=== PATIENT | male | born 1995 | race American Indian/Alaskan Native ===

== ENCOUNTER 2023-07-18 08:55 | Day surgery (SDC) | payer BC, OTHER ==
[2023-07-18] VITALS (12 sets, daily range): BP systolic 110–171; BP diastolic 50–120; PULSE 76–116; RESP 10–22; TEMP 98.4; O2SAT 94–97
[~2023-07-18] VITALS: Ht 180.3 cm; Wt 124.4 kg
[~2023-07-18 08:55] MED LIST: NO HOME MEDS
[2023-07-18] MEDS: ringers solution, lacted 1,000 ML IV SCH (10:00)
[2023-07-18] MEDS: clindamycin-Cleocin 900mg/D5W 50 ML IV ONE (10:00)
[2023-07-18] MEDS: famotidine 20mg tablet PO ONE (10:00)
[2023-07-18 10:11] LABS: BASOPHILS # (AUTO) 0.1 X10'3 (0-0.2); BASOPHILS % (AUTO) 0.7 % (0-1); EOSINOPHILS # (AUTO) 0.2 X10'3 (0-0.9); EOSINOPHILS % (AUTO) 1.8 % (0-6); LYMPHOCYTES # (AUTO) 2.9 X10'3 (1.1-4.8); LYMPHOCYTES % (AUTO) 30.9 % (21-51); MEAN CORPUSCULAR HEMOGLOBIN 29.4 PG (27.0-31.0); MEAN CORPUSCULAR HGB CONC 34.6 g/dL (33.0-36.5); MEAN CORPUSCULAR VOLUME 84.9 FL (78-98); MEAN PLATELET VOLUME 7.8 FL (7.4-10.4); MONOCYTES # (AUTO) 0.7 X10'3 (0-0.9); MONOCYTES % (AUTO) 7.5 % (2-12); NEUTROPHILS # (AUTO) 5.6 X10'3 (1.8-7.7); NEUTROPHILS % (AUTO) 59.1 % (42-75); PRE OP HEMATOCRIT 46.1 % (42.0-52.0); PRE OP PLATELET COUNT 315 X10'3 (140-440); PRE OP WHITE BLOOD COUNT 9.4 10'3 (4.8-10.8); RED BLOOD COUNT 5.43 X10'6 (4.70-6.10); RED CELL DISTRIBUTION WIDTH 13.3 % (11.5-14.5)
[2023-07-18 10:26] LABS: ALBUMIN 3.8 G/DL (3.4-5.0); ALBUMIN/GLOBULIN RATIO 0.9 (1.1-1.5); ALKALINE PHOSPHATASE 74 IU/L (46-116); BLOOD UREA NITROGEN 11 MG/DL (7-18); BUN/CREATININE RATIO 10.2 (10.0-20.0); CHLORIDE 102 MMOL/L (99-107); CREATININE 1.08 MG/DL (0.60-1.10); PRE OP ALT 40 U/L (30-65); PRE OP ANION GAP 9 (8-16); PRE OP AST 20 U/L (10-37); PRE OP BILIRUB, TOTAL 1.4 MG/DL (0.0-1.0); PRE OP GLUCOSE 101 MG/DL (70-104); PRE OP SODIUM 137 MMOL/L (135-145); TOTAL CARBON DIOXIDE 25.6 MMOL/L (24-32); eCRCL 107 ML/MIN; eGFR 80 ML/MIN
[2023-07-18 10:31] LABS: PRE OP POTASSIUM 3.8 MMOL/L (3.4-5.1)
[2023-07-18] MEDS ORDERED: labetalol 20mg/4ml (5mg/ml) syringe IV PRN (10:45)
[2023-07-18] MEDS ORDERED: morphine 2 MG/ML inj. syringe IV PRN (10:45)
[2023-07-18] MEDS ORDERED: proCHLORperazine 10 MG/2 ml inj IV PRN (10:45)
[2023-07-18] MEDS ORDERED: ondansetron/PF 4mg/2ml inj IV PRN (10:45)
[2023-07-18] MEDS ORDERED: meperidine/PF 25mg/ml syringe IV PRN ×3 (10:45)
[2023-07-18] MEDS ORDERED: acetaminophen 1,000mg/100ml IV 100 ML IV ONE (10:45)
[2023-07-18] MEDS ORDERED: ringers solution, lacted 1,000 ML IV SCH (10:45)
[2023-07-18] MEDS ORDERED: hydrALAZINE 20mg/ml inj. IV PRN (10:45)
[2023-07-18] MEDS ORDERED: morphine 4 MG/ML inj SYRINge IV PRN (10:45)
[2023-07-18] MEDS ORDERED: sevoflurane 250ml liquid IH ONE (10:47)
[2023-07-18] MEDS ORDERED: fentaNYL /PF 50mcg/ml 5ml ampule ONE (10:52)
[2023-07-18] MEDS ORDERED: midazolam 1 mg/ML 2ml injection ONE (10:52)
[2023-07-18] MEDS ORDERED: LIDOcaine 2% (20mg/ml) 5ml vial ONE (11:09)
[2023-07-18] MEDS ORDERED: propofol inj 20 ML IV ONE ×2 (11:09)
[2023-07-18] MEDS ORDERED: dexamethasone sod phosphate 4mg/ml inj. ONE (11:10)
[2023-07-18] MEDS ORDERED: ondansetron/PF 4mg/2ml inj ONE (11:10)
[2023-07-18] MEDS ORDERED: rocuronium 10mg/ml inj IV ONE (11:10)
[2023-07-18] MEDS: LIDOcaine 1% 30ml preserv. free vial ONE (12:04)
[2023-07-18] MEDS: BUPIVAcaine 2.5mg/ml inj 50ml vial (contains preservative) ONE (12:04)
[2023-07-18] MEDS: BUPIVACAINE liposomal/PF 13.3 MG/ML vial IM ONE (12:04)
[2023-07-18] MEDS: BUPIVAcaine/PF 2.5mg/ml (0.25%) 10ml vial ONE (12:04)
[2023-07-18] MEDS ORDERED: neostigmine methylsulfate 1 MG/ML 10ml vial ONE (12:13)
[2023-07-18] MEDS ORDERED: glycopyrrolate 0.2mg/ml inj ONE (12:13)
[2023-07-18] MEDS: oxyCODONE/APAP 5-325mg tablet PO PRN (13:20)
[2023-07-18] MEDS: ketorolac trometh. 30mg/ml inj. IV ONE (13:29)
== END 2023-07-18 14:04 | disposition home or self-care (01) ==
LOC: PAS 08:55
PROVIDERS: ATTEND Surgery
DX: K43.2 Incisional hernia without obstruction or gangrene (principal); K42.9 Umbilical hernia without obstruction or gangrene; E66.9 Obesity, unspecified; Z90.49 Acquired absence of other specified parts of digestive tract; Z98.890 Other specified postprocedural states; Z68.38 Body mass index [BMI] 38.0-38.9, adult; Z88.0 Allergy status to penicillin; Z83.3 Family history of diabetes mellitus
CPT/HCPCS: 36415; 49591; 64488; 80053; 82948; 85025; C1781; C9290; J1100; J1885; J2250; J2405; J2704; J2710; J3010; J3490; J7030; J7120; Z7506; Z7508; Z7512; A4215; A4618